=== PATIENT | male | born 1940 | race Caucasian/White ===

== ENCOUNTER 2019-08-08 20:00 | Emergency (ER) | payer MEDICARE, OTHER ==
[2019-08-08 21:38] VITALS: PULSE 66
--- NOTE | 2019-08-08 22:01 | CRLCR ---
INDICATION: Syncope, pain TECHNIQUE: Frontal view of the chest. COMPARISON: None FINDINGS/IMPRESSION: The lungs are clear. The cardiac silhouette is mildly enlarged. There is no sizable pleural effusion or pneumothorax. The visualized osseous structures are unremarkable. Dictated by Cassidy Cortes MD @ Aug 08 2019 9:56PM Signed by Dr. Cassidy Cortes @ Aug 08 2019 9:58PM
[2019-08-08 22:37] VITALS: BP 123/67
--- NOTE | 2019-08-08 23:07 | EDM.PDOC ---
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 He is sort of put his head down and seemed to become unresponsive. Several friends grabbed him and laid him on the ground. They thought he was breathing and didn't seem to have a pulse so somebody did a chest the and immediately he came to and said "that hurts ". He has chronic atrial fibrillation and in the past had problems with a low heart rate. At the time he was taking Rythmol and that was discontinued. Has had chronic PVCs a lot. Right now he is taking Imdur last June she had some problems with angina and had a cardiac catheter he was found to have blockage in one small vessel but it was too small to be stented. He has a tape cutter down in [place]. He said that it one time a pacemaker was recommended but he didn't want to have anything to do with that. At the time I saw him he had been having some episodes of nausea and vomiting here in the ER. That however quickly resolved without any treatment. He did say that they ([facility]) gave him something for nausea in route to the hospital Treatments [employer]: Reports: IV/IO denies Pain Score (Numeric/FACES): 0 - Related Data Allergies Allergy/AdvReac Type Severity Reaction Status Date / Time diphenhydramine Allergy Tremors Verified 08/08/19 21:06 Home Meds: Home Meds Aspirin [Halfprin] 81 mg PO DAILY 08/08/19 [History] Cholecalciferol (Vitamin D3) [Vitamin D3] 1,000 unit PO DAILY 08/08/19 [History] Lisinopril 10 mg PO DAILY 08/08/19 [History] Mycophenolate Mofetil 1 tab PO BID 08/08/19 [History] Nitro- Dur 150 mg PO DAILY 08/08/19 [History] Nitroglycerin 1 tab SL ASDIRECTED PRN 08/08/19 [History] Simvastatin [Zocor] 20 mg PO DAILY 08/08/19 [History] cycloSPORINE, Modified [Gengraf] 3 tab PO BID 08/08/19 [History] predniSONE [Prednisone] 1 tab PO DAILY 08/08/19 [History] Past Medical History HEENT History: Reports: Impaired Vision Cardiovascular History: Reports: Afib, Angina, Arrhythmia, High Cholesterol, Hypertension, NH Respiratory History: Reports: Other (See Below) Other Respiratory History: hx of pneumonia Gastrointestinal History: Reports: Chronic Diarrhea Genitourinary History: Reports: Acute Renal Failure, Other (See Below) Other Genitourinary History: av shunt l arm Musculoskeletal History: Reports: Arthritis, Back Pain, Chronic, Osteoarthritis Hematologic History: Reports: Anemia, Blood Transfusion(s) Immunologic History: Reports: Immunosuppression Oncologic (Cancer) History: Reports: Squamous Cell Carcinoma Dermatologic History: Reports: Other (See Below) Other Dermatologic History: fragile skin tears easily and bruses - Infectious Disease History Infectious Disease History: Reports: Chicken Pox, Influenza, Measles, Mumps, Shingles - Past Surgical History HEENT Surgical History: Reports: Cataract Surgery, Tonsillectomy Cardiovascular Surgical History: Reports: Coronary Artery Stent GI Surgical History: Reports: Colonoscopy Male Surgical History: Reports: Other (See Below) Other Male Surgeries/Procedures: Kidney transplant 1997 Musculoskeletal Surgical History: Reports: Other (See Below) Other Musculoskeletal Surgeries/Procedures:: back surgery fusion with rods and plates l hip surgery Dermatological Surgical History: Reports: Skin Biopsy Social & Family History - Tobacco Use Smoking Status *Q: Never Smoker Second Hand Smoke Exposure: No - Caffeine Use Caffeine Use: Reports: None - Alcohol Use Days Per Week of Alcohol Use: 4 Number of Drinks Per Day: 1 Total Drinks Per Week: 4 - Recreational Drug Use Recreational Drug Use: No ED ROS GENERAL - Review of Systems Review Of Systems: See Below Constitutional: Reports: No Symptoms HEENT: Reports: No Symptoms Respiratory: Reports: No Symptoms Cardiovascular: Reports: Lightheadedness, Syncope Endocrine: Reports: No Symptoms GI/Abdominal: Reports: Nausea, Vomiting (There are other) : Reports: No Symptoms Musculoskeletal: Reports: No Symptoms Skin: Reports: No Symptoms Neurological: Reports: No Symptoms Psychiatric: Reports: No Symptoms Hematologic/Lymphatic: Reports: No Symptoms - Physical Exam Exam: See Below Exam Limited By: No Limitations General Appearance: Alert, No Apparent Distress, Thin Eye Exam: Bilateral Eye: Normal Inspection Throat/Mouth: Normal Inspection Head Exam: Atraumatic Neck: Supple Respiratory/Chest: Lungs Clear Cardiovascular: Bradycardia (C monitor strips), Irregularly Irregular GI/Abdominal: Soft, Non-Tender, Other (Transplanted kidney is in the right lower quadrant) Neuro Exam (Abbreviated): Alert, Oriented, CN II-XII Intact, Normal Cognition, No Motor/Sensory Deficits Extremities: Other (He has a shunt or AV fistula in the left forearm which has never been used for dialysis). No: Pedal Edema Psychiatric: Normal Affect Skin Exam: Warm, Dry Course - Vital Signs Last Recorded V/S: Last Vital Signs Temp 36.2 C 08/08/19 21:21 Pulse 66 08/08/19 22:36 Resp 19 08/08/19 22:36 BP 123/67 08/08/19 22:36 Pulse Ox 94 L 08/08/19 22:36 Orthostatic Blood Pressure [ 123/81 Standing] Orthostatic Blood Pressure [ 116/64 Supine] - Orders/Labs/Meds Orders: Active Orders 24 hr Category Date Time Status EKG Documentation Completion [RC] ASDIRECTED Care 08/08/19 21:34 Active EKG 12 Lead [EK] Urgent Ther 08/08/19 21:34 Ordered Labs: Laboratory Tests 08/08/19 08/08/19 Range/Units 21:45 21:45 WBC 10.2 (4.5-11.0) K/uL RBC 4.37 (4.30-5.90) M/uL Hgb 13.0 (12.0-15.0) g/dL Hct 40.6 (40.0-54.0) % MCV 93 (80-98) fL MCH 30 (27-31) pg MCHC 32 (32-36) % Plt Count 219 (150-400) K/uL Neut % (Auto) 78 H (36-66) % Lymph % (Auto) 13 L (24-44) % Todd % (Auto) 8 H (2-6) % Eos % (Auto) 1 L (2-4) % Baso % (Auto) 1 (0-1) % Sodium 141 (140-148) mmol/L Potassium 3.7 (3.6-5.2) mmol/L Chloride 108 (100-108) mmol/L Carbon Dioxide 23 (21-32) mmol/L Anion Gap 9.7 (5.0-14.0) mmol/L BUN 18 (7-18) mg/dL Creatinine 1.6 H (0.8-1.3) mg/dL Est Cr Clr Drug Dosing 31.89 mL/min Estimated GFR (MDRD) 42 L (>60) Glucose 126 H (74-106) mg/dL Calcium 8.6 (8.5-10.1) mg/dL Total Bilirubin 0.5 (0.2-1.0) mg/dL AST 48 H (15-37) U/L ALT 42 (12-78) U/L Alkaline Phosphatase 80 (46-116) U/L Troponin I 0.037 (0.000-0.056) ng/mL Total Protein 5.5 L (6.4-8.2) g/dL Albumin 3.2 L (3.4-5.0) g/dL Globulin 2.3 (2.3-3.5) g/dL Albumin/Globulin Ratio 1.4 (1.2-2.2) - Radiology Interpretation Free Text/Narrative:: Chest x-ray showed no acute cardiopulmonary process - Re-Assessments/Exams Free Text/Narrative Re-Assessment/Exam: 08/09/19 06:28 EKG showed partial left bundle branch block atrial fibrillation ventricular response rate generally in the 50s and 60s. Monitor sometimes shows slowing down to a ventricular rate of about 30 and runs of 2 or 3 PVCs. Free Text/Narrative Re-Assessment/Exam: 08/09/19 06:29 labs were noted. Troponin is negative. I discussed troponin with the patient and he understands that a single troponin does not rule out an NH. 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 His nausea is completely resolved. He wasn't interested in waiting around for a three-hour troponin. He wants to be discharged and then follow-up with his doctor tomorrow. I don't have any objection to this since he fully understands the situation. Departure - Departure Time of Disposition: 23:02 Disposition: Home, Self-Care 01 Condition: Fair Clinical Impression: Syncope, Atrial fibrillation with slow ventricular response - Discharge Information Instructions: Atrial Fibrillation, [id number], Syncope, [id number] Referrals: PCP,None [Primary Care Provider] - Forms: ED Department Discharge Additional Instructions: Most likely you had a syncopal episode do to a low heart rate caused by atrial fibrillation with a delayed ventricular response. Cardiac monitoring should be done. The episodes of nausea that she had here in the emergency department or a little bit worrisome. There was no ischemia seen on your EKG although you do have a incomplete left bundle branch block. A troponin test was done which did not show any kind of cardiac damage however troponin takes a few hours to show up in the blood after a myocardial infarction. Normally we would repeat it in about 3 hours. At this point it's doubtful that you actually had anything other than syncope caused by the low heart rate but yet we can't be absolutely certain that you didn't have an occult myocardial infarction. Your wishes to go ahead and go home now I think are reasonable given your medical knowledge. Please follow-up with your tape cutter or primary care physician tomorrow as planned - My Orders Last 24 Hours: My Active Orders 08/08/19 21:34 EKG Documentation Completion [RC] ASDIRECTED EKG 12 Lead [EK] Urgent - Assessment/Plan Last 24 Hours: My Active Orders 08/08/19 21:34 EKG Documentation Completion [RC] ASDIRECTED EKG 12 Lead [EK] Urgent
== END 2019-08-08 23:22 | disposition home or self-care (01) ==
LOC: JP.ED 20:00
DX: R55 Syncope and collapse (principal); I48.91 Unspecified atrial fibrillation; I10 Essential (primary) hypertension; E78.00 Pure hypercholesterolemia, unspecified; M19.90 Unspecified osteoarthritis, unspecified site; Z86.2 Personal history of diseases of the blood and blood-forming organs and certain disorders involving the immune mechanism; I25.2 Old myocardial infarction; Z88.8 Allergy status to other drugs, medicaments and biological substances; Z79.82 Long term (current) use of aspirin; Z79.899 Other long term (current) drug therapy
CPT/HCPCS: 36415; 71045; 80053; 84484; 85025; 93005; 93010; 99284; 99284-25